=== PATIENT | male | born 1945 ===

== ENCOUNTER 2021-07-05 09:32 | Outpatient (CLI) | payer MEDICARE, BC ==
[~2021-07-05 09:32] MED LIST: Magnevist 469MG/ML 20 ML VIAL ONE
== END 2021-07-05 09:33 | disposition home or self-care (01) ==
LOC: TBSIIMAG 09:32
PROVIDERS: ATTEND Urology
DX: R97.20 Elevated prostate specific antigen [PSA] (principal)
CPT/HCPCS: 72197; 82565; A9579